=== PATIENT | male | born 1980 | race Caucasian/White ===

== ENCOUNTER 2019-02-06 18:40 | Emergency (ER) | payer SELFPAY ==
[~2019-02-06] VITALS: Ht 177.8 cm; Wt 81.6 kg
[2019-02-06] MEDS ORDERED: KETOROLAC TROMETHAMINE INJ 30 MG/ML VIAL ONE (19:12)
[2019-02-06] MEDS ORDERED: HYDROMORPHONE 1 MG/1 ML DISP.SYRIN ONE ×2 (19:12→19:57)
[2019-02-06] MEDS ORDERED: ONDANSETRON HCL/PF 4 MG/2 ML VIAL ONE (19:12)
[2019-02-06 19:20] LABS: BASOPHILS # (AUTO) 0.1 /CMM (0.0-0.2); BASOPHILS % (AUTO) 0.5 % (0.0-2.0); EOSINOPHILS % (AUTO) 1.4 % (0.0-6.0); HEMATOCRIT 48 % (39-51); HEMOGLOBIN 16.4 g/dL (13.5-17.5); LYMPHOCYTES # (AUTO) 1.5 /CMM (0.8-4.8); LYMPHOCYTES % (AUTO) 10.6 % (20.0-44.0); MEAN CORPUSCULAR HGB CONC 34 g/dl (31.0-36.0); MEAN CORPUSCULAR VOLUME 94 fL (80-96); MONOCYTES # (AUTO) 0.8 /CMM (0.1-1.30); MONOCYTES % (AUTO) 5.5 % (2.0-12.0); NEUTROPHILS # (AUTO) 11.5 /CMM (1.8-8.9); PLATELET COUNT (AUTO) 301 /CMM (150-450); WHITE BLOOD COUNT (AUTO) 14.1 K/uL (4.3-11.0)
--- NOTE | 2019-02-06 19:21 | NUR ---
BIBWIFE WORSENING LUQ ABDOMINAL PAIN W/ N/V SUDDEN ONSET AT 1715. ON ROOM AIR, BREATHING EVENLY AND UNLABORED, KEPT COMFORTABLE, WILL CONTINUE TO MONITOR ACCORDINGLY.
--- NOTE | 2019-02-06 19:26 | NUR ---
report given to rajinder galicia for luisito
[2019-02-06 19:27] LABS: CALCIUM, SERUM 9.3 mg/dL (8.5-10.1); CREATININE 1.4 mg/dL (0.6-1.3); POTASSIUM 4.2 mmol/L (3.5-5.1)
[2019-02-06] MEDS ORDERED: KETOROLAC TROMETHAMINE INJ 30 MG/ML VIAL IV ONE (19:30)
[2019-02-06] MEDS ORDERED: IV NS 0.9% 1,000 ML BAG IV ONE ×2 (19:30→21:00)
[2019-02-06] MEDS ORDERED: HYDROMORPHONE INJ 2 MG/ML DISP.SYRIN IV ONE ×2 (19:30→21:00)
[2019-02-06] MEDS ORDERED: ONDANSETRON HCL/PF 4 MG/2 ML VIAL IVP ONE (19:30)
[2019-02-06 19:34] LABS: ALBUMIN 4.1 g/dL (3.4-5.0); BILIRUBIN,DIRECT 0.1 mg/dL (0.0-0.2); BILIRUBIN,TOTAL 0.5 mg/dL (0.2-1.0); TOTAL PROTEIN, SERUM 7.8 g/dL (6.4-8.2)
--- NOTE | 2019-02-06 19:35 | NUR ---
PT TAKEN TO RADIOLOGY
--- NOTE | 2019-02-06 19:48 | NUR ---
PT BROUGHT BACK FROM CT, COMPLAINING OF ABDOMINAL PAIN 01/12, NO N/V
--- NOTE | 2019-02-06 19:52 | NUR ---
VERBAL ORDER SECOND DOSE OF DILAIDID 1MG TO BE GIVEN
[2019-02-06] MEDS ORDERED: TAMSULOSIN 0.4 MG CAP.SR.24H PO ONE (21:00)
[2019-02-06] MEDS ORDERED: TAMSULOSIN 0.4 MG CAP.SR.24H ONE (21:04)
--- NOTE | 2019-02-06 21:39 | NUR ---
PT REMIANS IN BED, FLUIDS RUNNING, DESCRIBES PAIN "TOLERABLE AND NOT BAD BEFORE"
--- NOTE | 2019-02-06 21:44 | NUR ---
Patient discharged to home in stable condition. Written and verbal after care instructions given. Patient verbalizes understanding of instruction.
[2019-02-06 21:45] VITALS: BP 142/90
== END 2019-02-06 21:45 | disposition home or self-care (01) ==
LOC: ER 18:43
DX: N20.1 Calculus of ureter (principal)
CPT/HCPCS: 36415; 71045; 74176; 80048; 80076; 83690; 85025; 93005; 96374; 96375; 96376; 99284; J1170 ×2; J1885; J2405; J7030 ×2